=== PATIENT | male | born 1995 | race American Indian/Alaskan Native ===

== ENCOUNTER 2017-05-16 01:00 | Emergency (ER) | payer SELFPAY ==
--- NOTE | 2017-05-16 04:10 | Emergency Department Report ---
Stated Complaint: +LOC; PALPITATIONS; CP - HPI History of Present Illness: 21M PMH none p/w/co syncopal episode at home tonight about 10PM, + loc in shower , fam assisted pt, fam brought pt to [facility]. pt states he had palpitations. States he used marijuana which may have been laced - Exam Vital Signs: Vital Signs 05/16/17 01:11 Temperature 98.1 F Pulse Rate 98 H Respiratory 18 Rate Blood Pressure 137/83 O2 Sat by Pulse 99 Oximetry Physical Exam: heart s1/s2 MSE screening note: Focused history and physical exam performed. Due to findings the following was ordered: ED MSE:syncope, palpitation, SOB 1- lba,s EKG, CXR, CT head, UA ED Disposition for MSE Condition: Stable
[2017-05-16 04:37] LABS: Eosinophils % (Auto) 2.1 % (0.0-4.3); Hematocrit 41.4 % (35.5-45.6); Hemoglobin 13.3 gm/dl (11.8-15.2); Mean Corpuscular HGB Conc 32 % (32-34); Mean Corpuscular Volume 80 fl (84-94); Platelet Count 210 K/mm3 (140-440); Red Blood Count 5.16 M/mm3 (3.65-5.03); Red Cell Distribution Width 14.8 % (13.2-15.2)
[2017-05-16 04:38] LABS: Mean Corpuscular Hemoglobin 26 pg (28-32)
[2017-05-16 04:54] LABS: Urine Drugs of Abuse Note Disclamer
[2017-05-16 04:54] LABS: Alanine Aminotransferase 16 units/L (7-56); Albumin 4.8 g/dL (3.9-5); Albumin/Globulin Ratio 1.7 %; Alkaline Phosphatase 60 units/L (35-129); Anion Gap 15 mmol/L; BUN/Creatinine Ratio 18; Blood Urea Nitrogen 18 mg/dL (9-20); Calcium 9.5 mg/dL (8.4-10.2); Carbon Dioxide 28 mmol/L (22-30); Chloride 101.2 mmol/L (98-107); Creatine Kinase 418 units/L (55-170); Glucose 93 mg/dL (75-100); Potassium 3.8 mmol/L (3.6-5.0); Sodium 140 mmol/L (137-145); Total Protein 7.7 g/dL (6.3-8.2)
[2017-05-16 04:56] LABS: Bilirubin,Direct < 0.2 mg/dL (0-0.2)
[2017-05-16 05:05] LABS: Bilirubin,Urine NEG (Negative); Blood,Urine NEG (Negative); Ketones,Urine NEG (Negative); Leukocyte Esterase,Urine NEG (Negative); Mucus,Urine 1+ /HPF; Nitrite,Urine NEG (Negative); Protein,Urine <15 mg/dL mg/dL (Negative); Urobilinogen,Urine < 2.0 mg/dL (<2.0)
--- NOTE | 2017-05-16 05:17 | Cat Scan Report ---
FINAL REPORT EXAM: CT HEAD/BRAIN WO CON HISTORY: syncope, +LOC TECHNIQUE: CT imaging acquired through the head without intravenous contrast. Transaxial reformations are provided. PRIORS: None. FINDINGS: The ventricles, cisterns and sulci are normal. No intraparenchymal or extra-axial mass, hemorrhage, or mass effect. Fields and white-matter differentiation is normal. Normal spherical shape of the globes. Paranasal sinuses and mastoid air cells are clear. No skull or facial fracture visualized. IMPRESSION: No acute intracranial abnormality.
[2017-05-16 06:45] VITALS: BP 108/55
--- NOTE | 2017-05-16 09:17 | XRay Report ---
Chest 2 views: History: Syncope. Findings: Normal cardiomediastinal silhouette. Trachea is midline. No consolidation, pneumothorax or pleural effusion. Impression: No acute cardiopulmonary findings.
== END 2017-05-16 06:50 | disposition left against medical advice (07) ==
LOC: ED 01:00
DX: R07.9 Chest pain, unspecified (principal); Z53.21 Procedure and treatment not carried out due to patient leaving prior to being seen by health care provider
CPT/HCPCS: 36415; 70450; 71020; 80048; 80074; 80307; 81001; 82550; 84484; 85025; 85379; 93005; 93010; G0480; 80320